=== PATIENT | male | born 1945 | race Caucasian/White ===

== ENCOUNTER 2020-08-06 07:44 | Outpatient (CLI) | payer MEDICARE, OTHER ==
--- NOTE | 2020-08-06 08:00 | RAD ---
LEFT RIB SERIES INDICATION: Left sided rib pain. COMPARISON: None. FINDINGS: Visualized Left Chest: There are calcified pleural plaques involving left hemithorax. There is mild s cattered scarring. There are calcified granuloma within the right upper lobe and left midlung. No pneumothorax. Left Ribs: No displaced left-sided rib fracture is demonstrated. IMPRESSION: No displaced left-sided rib fracture
--- NOTE | 2020-08-06 08:10 | RAD ---
EXAM: XR Ribs Rt>=2 view STANDARD PROVIDED CLINICAL HISTORY: Right chest pain 1 week. No history of trauma. COMPARISON: None FINDINGS: No obvious rib fracture is seen. There are prominent calcified pleural plaques involving the right he mithorax and partially imaged on the left which can be seen with prior asbestos exposure. There are a few scattered linear densities likely due areas of mild scarring. No consolidation or definite pleu ral fluid is seen. Vascular calcifications are seen in thoracic aorta. No right-sided rib fracture is appreciated. IMPRESSION: No displaced right-sided rib fractures.
--- NOTE | 2020-08-06 08:12 | RAD ---
Thoracic spine 2 views HISTORY: Back pain. FINDINGS: There are 12 thoracic type vertebrae. Pedicles are intact. Mild S shaped curvature. Mild chronic appearing compression deformities at the T7, 8, 9 levels. Less than 50% compression. Pos terior alignment is maintained. Osteophytosis throughout the vertebral bodies and facets. Prominent pleural plaques partially visualized throughout the chest. There is calcification of the ao rta. IMPRESSION : Mild chronic appearing compression of 3 adjacent mid thoracic vertebral bodies. No acute injury is munoz spected. Degenerative changes throughout the thoracic spine. Atherosclerosis. Chronic appearing pleural plaques.
[2020-08-06 08:39] LABS: #Basophils 0.1 thou/uL (0.0-0.2); #Eosinphils 0.2 thou/uL (0.0-0.7); #Lymphocytes 2.2 thou/uL (1.20-3.40); #Monocytes 0.6 thou/uL (0.11-0.59); #Neutrophils 4.1 thou/uL (1.40-6.50); %Basophils 1.6 % (0.0-1.0); %Lymphocytes 30.5 % (21.0-51.0); %Monocytes 8.7 % (0.0-10.0); %Neutrophils 56.2 % (42.0-75.0); Hemoglobin 14.1 g/dL (14.0-18.0); Mean Corpuscular HGB CONC 31.5 g/dL (32.0-36.0); Mean Platelet Volume 6.5 fL (7.4-10.4); Platelet Count 354 thou/uL (130-400); RBC Distribution Width 13.3 % (11.5-14.5); Red Blood Cell (RBC) Count 4.71 mill/uL (4.70-6.10); White Blood Cell (WBC) Count 7.2 thou/uL (4.8-10.8)
[2020-08-06 08:45] LABS: ALT (SGPT) 19 U/L (8-55); AST (SGOT) 22 U/L (5-34); Albumin 3.9 g/dL (3.4-4.8); Alkaline Phosphatase 90 U/L (40-110); Anion Gap 14 mmol/L (10-20); BUN (Urea Nitrogen) 21 mg/dL (8.4-25.7); Bilirubin, Total 0.5 mg/dL (0.2-1.2); Calc. Creatinine Clearance 0 mL/min (70-130); Calcium 8.9 mg/dL (7.8-10.44); Carbon Dioxide 26 mmol/L (23-31); Cardiac Risk 3.8 (Less than 4.5); Chloride 104 mmol/L (98-107); Cholesterol 170 mg/dl (< 200 Desired); Estimated GFR-MDRD 70; Globulin 3.6 g/dL (2.4-3.5); Glucose 80 mg/dL (83-110); HDL Cholesterol 45 mg/dL (>60 Neg Risk); LDL Cholesterol, Calculated 99 mg/dL; Potassium 4.4 mmol/L (3.5-5.1); Protein, Total 7.5 g/dL (5.8-8.1); Sodium 140 mmol/L (136-145); Triglycerides 130 mg/dL (Less than 150)
[2020-08-06 17:02] LABS: Hemoglobin A1c 5.1 % (4.0-6.0)
== END 2020-08-06 07:45 | disposition home or self-care (01) ==
LOC: MADRAD 07:44
PROVIDERS: ATTEND Family Medicine
DX: Z00.00 Encounter for general adult medical examination without abnormal findings (principal); Z13.1 Encounter for screening for diabetes mellitus; R07.81 Pleurodynia; M54.6 Pain in thoracic spine; Z86.39 Personal history of other endocrine, nutritional and metabolic disease; Z79.899 Other long term (current) drug therapy; R31.0 Gross hematuria
CPT/HCPCS: 36415; 72070; 80053; 80061; 83036; 85025